=== PATIENT | female | born 1970 | race Caucasian/White ===

== ENCOUNTER → 2020-05-14 13:34 | Outpatient (BNVA) | payer MEDICAID, SELFPAY | PROVIDERS: PCP Internal Medicine; Referring Provider Internal Medicine; Visit Provider Internal Medicine | DX: E04.2 Nontoxic multinodular goiter (principal); E55.9 Vitamin D deficiency, unspecified; J98.59 Other diseases of mediastinum, not elsewhere classified | CPT/HCPCS: 99202 ==

== ENCOUNTER 2020-06-10 11:44 | Outpatient (REF) | payer MEDICAID, SELFPAY ==
[2020-06-10 13:36] LABS: Free T4 (Free Thyroxine) 1.02 ng/dL (0.71-1.85); Thyroid Stimulating Hormone 0.58 uIU/mL (0.32-4.0); Vitamin D 25-OH Total 8.5 ng/mL (>30)
[2020-06-11 19:23] LABS: Triiodothyronine T3 Total 117 ng/dL (76-181)
== END 2020-06-10 11:45 | disposition home or self-care (01) ==
LOC: HO.LAB 11:44
PROVIDERS: PCP Internal Medicine; Visit Provider Internal Medicine
DX: E04.2 Nontoxic multinodular goiter (principal); E55.9 Vitamin D deficiency, unspecified
CPT/HCPCS: 82306; 84439; 84443; 84480

== ENCOUNTER → 2020-06-11 09:08 | Outpatient (BNVA) | payer MEDICAID, SELFPAY | PROVIDERS: PCP Internal Medicine; Referring Provider Internal Medicine; Visit Provider Internal Medicine | DX: Z76.89 Persons encountering health services in other specified circumstances (principal) ==

== ENCOUNTER 2020-06-16 14:28 | Outpatient (REF) | payer MEDICAID, SELFPAY ==
--- NOTE | 2020-06-16 14:32 | US_ITS ---
EXAMINATION: US THYROID CLINICAL INFORMATION: Nontoxic multinodular goiter. COMPARISON: None TECHNIQUE: Linear transducer tesfaye-scale and color Doppler examination with attention to the region of the thyroid. FINDINGS: SIZE: Measurements of the thyroid lobes and nodules are given in sagittal, anteroposterior and transverse dimensions respectively. Right Thyroid Lobe: 6.3 x 2.5 x 2.3 cm, volume 18.8 mL. Parenchyma: The gland echotexture is heterogeneous. Thyroid vascularity is normal. Left Thyroid Lobe: 7.9 x 3.2 x 3.8 cm, volume 50.1 mL. Parenchyma: The gland echotexture is heterogeneous. Thyroid vascularity is normal. Isthmus: 0.6 cm in maximum AP dimension. RIGHT THYROID LOBE: There are 4 nodules seen. 1. Location: Upper pole. Size: 0.6 x 0.5 x 0.5 cm. Nodule characteristics: Heterogeneous, smoothly marginated with no intranodular flow. 2. Location: Mid pole. Size: 0.5 x 0.4 x 0.4 cm. Nodule characteristics: Heterogeneous, smoothly marginated with no intranodular flow. 3. Location: Mid pole. Size: 0.4 x 0.3 x 0.5 cm. Nodule characteristics: Heterogeneous, smoothly marginated with no intranodular flow. 4. Location: Lower pole. Size: 3.2 x 1.7 x 2.4 cm. Nodule characteristics: Heterogeneous, smoothly marginated with intranodular flow. ISTHMUS: No nodules. LEFT THYROID LOBE: There are 2 nodules seen. 1. Location: Mid pole. Size: 4.0 x 3.1 x 4.0 cm. Nodule characteristics: Heterogeneous, smoothly marginated with intranodular flow. 2. Location: Lower pole. Size: 5.7 x 3.3 x 2.7 cm. Nodule characteristics: Heterogeneous, smoothly marginated with intranodular flow. NODES: No lymphadenopathy is seen in the tissue surrounding the thyroid gland. US/US thyroid IMPRESSION: Multiple thyroid nodules, the largest in the mid pole and lower pole left lobe and lower pole right lobe. They are heterogeneous and suspicious. I would recommend biopsy of both these lesions.
== END 2020-06-16 14:29 | disposition home or self-care (01) ==
LOC: HO.HMGCX 14:28
PROVIDERS: PCP Internal Medicine; Visit Provider Internal Medicine
DX: E04.2 Nontoxic multinodular goiter (principal)
CPT/HCPCS: 76536

== ENCOUNTER → 2020-06-18 11:47 | Outpatient (BNVA) | payer MEDICAID, SELFPAY | PROVIDERS: PCP Internal Medicine; Referring Provider Internal Medicine; Visit Provider Internal Medicine | DX: Z76.89 Persons encountering health services in other specified circumstances (principal) ==

== ENCOUNTER 2020-06-19 12:29 | Outpatient (REF) | payer MEDICAID, SELFPAY ==
--- NOTE | 2020-06-19 12:33 | CT_ITS ---
EXAMINATION: CT SOFT TISSUE NECK WITHOUT CONTRAST CLINICAL INFORMATION: Difficulty swallowing. COMPARISON: None TECHNIQUE: Helical imaging was performed in the axial plane with generation of coronal and sagittal reformatted images. This CT examination was performed using dose optimization techniques as appropriate, variously including the following: *Automated exposure control *Adjustment of mA and/or kV according to patient size (this includes techniques or standardized protocols for targeted exams where dose is matched to indication/reason for exam; i.e. extremities or head) *Use of iterative reconstruction technique DLP: 366 mGy-cm FINDINGS: No cervical adenopathy is identified. The parotid glands are homogeneous in attenuation. The submandibular glands are normal. No contour abnormality or pathologic enhancement is seen within the oral cavity or pharyngeal mucosal space. The laryngeal structures are normal. The parapharyngeal fat is preserved. The carotid sheath vasculature opacify normally. No extra mucosal soft tissue mass or fluid collection is seen. No retropharyngeal fluid collection is seen. There is significant left thyroid enlargement with a large substernal goiter deviating the trachea to the right and posteriorly. There is mild enlargement of right thyroid gland as well. The entire left thyroid gland measures approximately 8.4 cm in craniocaudad length. The superior mediastinum is unremarkable. The lung apices are clear. The mastoid air cells and visualized portions of the paranasal sinuses are well aerated. The temporomandibular joints are normal. No periapical disease is identified. There is reversal of cervical lordosis. The vertebral heights, alignment and disc heights are preserved. The craniovertebral junction and the C1-C2 alignment is normal. The imaged portions of the brain parenchyma are unremarkable. CT/CT soft tissue neck wo con IMPRESSION: Large thyroid goiter with left-sided substernal extension deviating trachea to the right and posteriorly. There is mild compression of the trachea as well.
== END 2020-06-19 12:30 | disposition home or self-care (01) ==
LOC: HO.CT 12:29
PROVIDERS: Visit Provider Internal Medicine
DX: E55.9 Vitamin D deficiency, unspecified (principal)
CPT/HCPCS: 70490

== ENCOUNTER 2020-06-21 11:39 | Outpatient (REF) | payer MEDICAID, SELFPAY | END 2020-06-21 11:40 | disposition home or self-care (01) | LOC: HO.HOSX 11:39 | PROVIDERS: Visit Provider Orthopaedic Surgery | DX: Z13.89 Encounter for screening for other disorder (principal) ==

== ENCOUNTER 2020-06-22 13:05 | Outpatient (REF) | payer MEDICAID, SELFPAY ==
--- NOTE | 2020-06-22 13:13 | XR_ITS ---
EXAMINATION: XR SHOULDER, LEFT CLINICAL INFORMATION: Shoulder pain. COMPARISON: 12/14/2017 TECHNIQUE: AP external rotation, Grashey, scapular Y, and axillary views of the left shoulder. FINDINGS: No fracture. Glenohumeral and acromioclavicular alignment is anatomic with normal joint space. No abnormal soft tissue calcifications. XR/XR shoulder LT min 2V IMPRESSION: Unremarkable left shoulder radiograph.
== END 2020-06-22 13:06 | disposition home or self-care (01) ==
LOC: HO.HOSX 13:05
PROVIDERS: PCP Internal Medicine; Visit Provider Orthopaedic Surgery
DX: M25.519 Pain in unspecified shoulder (principal); M75.51 Bursitis of right shoulder; M89.8X1 Other specified disorders of bone, shoulder
CPT/HCPCS: 20610; 73030; 99202; J1100

== ENCOUNTER 2020-07-16 11:42 | Outpatient (REF) | payer MEDICAID, SELFPAY ==
--- NOTE | 2020-07-16 12:59 | PM.OP ---
Brief Operative Note Date of Service: 07/16/20 Surgeon: Mariola Franklin, DO This is doctor Mariola Franklin. This is an ultrasound-guided fine-needle aspiration report. Date of Examination: 1970 Indication: Multinodular Thyroid Porcedure: Procedure was explained to the patient. Alternatives, the risk and benefits were discussed. Written consent was obtained. A time-out was also obtained. After sterile preparation, fine-needle aspiration of a LLP 5.7 cm thyroid nodule was performed using direct ultrasound guidance to confirm accurate needle placement. Four aspirations were made using 27 gauge needles. Samples were submitted for cytology. One pass was dedicated for [employer] Gene sequencing coroner forensic technician testing. Our attention was then turned to a RLP 3.4 cm thyroie nodule. Fine needle aspiration of this nodule was performed using direct ultrasound guidance to confirm accurate needle placement. Four aspirations were made using 27 guage needles. Samples were submitted for cytology. One pass was dedicated for Afirma gene sequencing coroner forensic technician testing. The patient tolerated the procedure well. Aftercare instructions were provided. Impression: Uncomplicated fine needle aspiration biopsy of A LLP 5.7 cm thyroid nodule and a RLP 3.4 cm thyroid nodule under ultrasound guidance. Estimated blood loss (mL): 0
== END 2020-07-16 11:43 | disposition home or self-care (01) ==
LOC: HO.US 11:42
PROVIDERS: Visit Provider Internal Medicine
DX: E04.2 Nontoxic multinodular goiter (principal)
CPT/HCPCS: 10005; 10006; 88172; 88173; 88177

== ENCOUNTER 2020-08-06 08:00 | Outpatient (RCR) | payer MEDICAID, SELFPAY ==
--- NOTE | 2020-07-01 18:13 | MHC.PT.EP ---
[facility] [place] Office [place] Office [place] Office [address] [phone] F: [phone] F: [phone] F: [phone] F: [phone] Physical Therapy Plan of Care Date of Evaluation: 07/01/20 Date of Surgery: Diagnosis: This is a 49 yo female presenting to skilled PT for disorder of bone, shoulder. Assessment: This is a 49 yo female presenting to skilled PT for disorder of bone, shoulder. She reports that she had a frozen shoulder back in 2015 which was never addressed by due to being at the time. She did have a cortisone injection back in 2014 however and then had 2 more injections last week (minimal improvement noted). As her symptoms have continued to bother her she requested physical therapy for ROM, strengthening and pain management. At the time of eval she reports muscle tension in her neck/UT (also describes this as poking sensation as if with needles ). She also has aching/sharpness throughout B shoulders, R is worse than the L. Assessment reveals pain that ranges up to a 6/10 with functional mobility and at rest. She has gross cervical and shoulder joint decreased mobility and ROM, impaired gross muscle strength, poor posture with rounded shoulders and forward head, deficits in pain management and is tender throughout UT and has decreased functional tolerance for reaching, lifting, pulling etc. She is a good candidate for skilled PT 2x/wk for 5wks. Frequency and Duration: The patient will be seen 2x/wk for 5wks Short Term Goals: I in HEP Improved AROM shoulder by 10 degs B Improved AROM cervical ROM by at least 10 degs Correction Goals: Pain improved to at least 2/10 at the worst Demos good postural adjustments without cuing from PT Improve SPADI by 10 points at least WFL B shoulder ROM and MMT Treatment Plan: Modalities to reduce pain, spasms and effusion. Manual therapy to restore motion and function. Therapeutic exercise to improve strength and flexibility. Neuromuscular re-education for posture and balance. Therapeutic activities to return to functional activities of daily living. Electronically signed by: Yue Ferguson, PT Please sign and return to therapist. Thank you for your referral.
--- NOTE | 2021-01-04 12:04 | MHC.PT.DC ---
[facility] [place] Office [place] Office [place] Office [address] Eduardo Castro [address] [phone] F: [phone] F: [phone] F: [phone] F: [phone] Physical Therapy Discharge Report Diagnosis: This is a 49 yo female presenting to skilled PT for disorder of bone, shoulder. Date of Surgery: Date of Evaluation: 07/01/20 Date of Discharge: 01/04/21 Treatments to Date: 8 Cancellations to Date: 0 No Shows to Date: 0 Discharge Status: Improved Function Independent with HEP Patient Elected to Stop Discharge Summary: Patient reported that she continues to be stiff at the L lateral aspect of her c-spine and R UT at the last tx session. States that she has some hand numbness and elbow pain which she attributes to her elbow fx but this only occurs at night. Educated her to follow up with MD regarding this. Patient did not show for last appointment. DC to HEP at this time. Electronically signed by: Yue Ferguson PT Please sign and return to therapist. Thank you for your referral.
== END 2021-01-04 12:07 | disposition home or self-care (01) ==
LOC: HO.PTCHIC 08:00
PROVIDERS: PCP Internal Medicine; Visit Provider Orthopaedic Surgery
DX: M89.8X1 Other specified disorders of bone, shoulder (principal)
CPT/HCPCS: 97014; 97033; 97110; 97112; 97140; 97162

== ENCOUNTER → 2020-08-10 07:39 | Outpatient (BNVA) | payer MEDICAID, SELFPAY | PROVIDERS: PCP Internal Medicine; Visit Provider Internal Medicine ==

== ENCOUNTER 2020-10-15 09:39 | Outpatient (REF) | payer MEDICAID, SELFPAY ==
--- NOTE | ~2020-10-15 | US_ITS ---
EXAMINATION: US EXTRACRANIAL CAROTID DUPLEX, BILATERAL CLINICAL INFORMATION: Transient ischemic attack COMPARISON: None TECHNIQUE: Real-time ultrasound and Doppler techniques (integrating B-mode 2-D vascular images, Doppler spectral analysis and color-flow Doppler imaging) were utilized to interrogate the extracranial carotid arteries, the vertebral arteries and proximal subclavian arteries bilaterally. The degree of stenosis is determined by criteria similar to NASCET. FINDINGS: Right Side: 1. There is no significant atherosclerotic plaque seen in the bifurcation/proximal ICA region. 2. The common carotid artery PSV proximally is 126 cm/s and distally 122 cm/s. 3. The proximal internal carotid artery velocities are 80.9 cm/s systolic and 27.6 cm/s diastolic. 4. The proximal external carotid artery PSV is 135 cm/s. 5. The vertebral artery shows antegrade flow. 6. The subclavian artery waveforms are normal. Left Side: 1. There is no significant atherosclerotic plaque seen in the bifurcation/proximal ICA region. 2. The common carotid artery PSV proximally is 129 cm/s and distally 106 cm/s. 3. The proximal internal carotid artery velocities are 104 cm/s systolic and 29.1 cm/s diastolic. 4. The proximal external carotid artery PSV is 72.1 cm/s. 5. The vertebral artery shows antegrade flow. 6. The subclavian artery waveforms are normal. US/US carotid duplex BI IMPRESSION: 1. RIGHT: Normal right internal carotid artery without atherosclerotic plaque or hemodynamically significant stenosis. 2. LEFT: Normal left internal carotid artery without atherosclerotic plaque or hemodynamically significant stenosis.
--- NOTE | 2020-10-15 10:30 | EMG_ITS ---
Bilateral median and ulnar motor and sensory studies were performed. Bilateral radial sensory studies were performed and paraspinal muscles were tested with a needle. IMPRESSION: 1. Mild bilateral median neuropathy across carpal tunnel. 2. Mild bilateral ulnar neuropathy across elbow. MD ORA Jiang/WALDEMAR / [id number]
== END 2020-10-15 09:40 | disposition home or self-care (01) ==
LOC: HO.US 09:39
PROVIDERS: Visit Provider Internal Medicine
DX: G45.9 Transient cerebral ischemic attack, unspecified (principal); R20.0 Anesthesia of skin
CPT/HCPCS: 93880; 95886; 95909; 95911

== ENCOUNTER → 2020-11-09 08:10 | Outpatient (BNVA) | payer MEDICAID, SELFPAY | PROVIDERS: PCP Internal Medicine; Visit Provider Internal Medicine ==

== ENCOUNTER → 2020-12-23 08:17 | Outpatient (BNVA) | payer MEDICAID, SELFPAY | PROVIDERS: PCP Internal Medicine; Visit Provider Internal Medicine ==

== ENCOUNTER 2022-01-23 13:23 | Emergency (ER) | payer MEDICAID, SELFPAY ==
--- NOTE | ~2022-01-23 | CT_ITS ---
EXAMINATION: CT ABDOMEN AND PELVIS WITHOUT CONTRAST CLINICAL INFORMATION: Flank pain and bilateral urinary symptoms COMPARISON: None. TECHNIQUE: Multidetector volumetric imaging was performed from the lung bases through the pubic symphysis. Sagittal and coronal reformatted images were obtained on the technologist workstation. This CT examination was performed using dose optimization techniques as appropriate, variously including the following: *Automated exposure control *Adjustment of mA and/or kV according to patient size (this includes techniques or standardized protocols for targeted exams where dose is matched to indication/reason for exam; i.e. extremities or head) *Use of iterative reconstruction technique DLP 932 FINDINGS: The lack of intravenous contrast limits evaluation of the solid visceral organs including the liver, spleen, pancreas, and kidneys. LUNG BASES: The visualized lung bases are unremarkable. LIVER, GALLBLADDER, AND BILIARY TREE: Limited non-contrast evaluation is normal. No gross focal hepatic lesion. Normal liver size and contour. No gross biliary ductal dilation. The gallbladder is unremarkable with no evidence of radiopaque gallstones, gallbladder wall thickening, or obvious pericholecystic inflammatory changes. PANCREAS: Limited non-contrast evaluation is normal. No berlin-pancreatic fluid. SPLEEN: Limited non-contrast evaluation is normal. ADRENAL GLANDS: Normal; no adrenal mass. KIDNEYS AND URETERS: Limited non-contrast evaluation is normal. No hydronephrosis, hydroureter, or calculi seen. No perinephric stranding. GASTROINTESTINAL TRACT: Small bowel and colon are non-dilated. No bowel wall thickening. No pericolonic inflammatory changes to suggest colitis or diverticulitis. Normal appendix. ABDOMINAL WALL: No hernia seen. LYMPH NODES: No pathologically enlarged lymph nodes in the abdomen or pelvis. VASCULAR: Normal caliber abdominal aorta. BLADDER: Urinary bladder is collapsed with mild perivesicular fluid and slight bladder wall irregularity. PELVIC VISCERA: Normal noncontrast appearance of the uterus and ovaries. OSSEOUS STRUCTURES: No acute or suspicious osseous abnormalities. CT/CT abdomen pelvis wo con IMPRESSION: The urinary bladder is collapsed with mild perivesicular fluid and slight bladder wall irregularity. Cystitis could give this appearance. Recommend correlation with urinalysis. No calculi or hydronephrosis seen.
[2022-01-23 13:45] VITALS: BP 140/74; PULSE 80; RESP 17; O2SAT 98; BMI 41.3
[2022-01-23 15:02] LABS: Appearance Urine CLOUDY; Color Urine DK YELLOW; Glucose Urine UA NEG (NEG); Leukocyte Esterase Urine 1+ (NEG); Nitrite Urine NEG (NEG); UACC Culture Trigger YES; Urine Blood 3+ (NEG); Urine Ketones NEG (NEG); Urine Protein 2+ MG/DL (NEG-TRACE)
[2022-01-23 15:05] LABS: UPreg QC Valid YES; Urine Pregnancy NEGATIVE (NEGATIVE)
[2022-01-23 15:10] LABS: Bacteria Urine TRACE /LPF; Mucus Urine TRACE /LPF; RBC Urine TNTC /HPF (0); Squamous Epithelial Cell Urine 1+ /LPF
--- NOTE | 2022-01-23 21:32 | ED.FEMALEGU ---
HPI - Female Genitourinary General Chief complaint: Urogenital-Female Stated complaint: UTI antibiotics not working Time Seen by Provider: 01/23/22 16:37 Source: patient Mode of arrival: ambulatory Limitations: no limitations History of Present Illness HPI Narrative: 51-year-old female with past medical history significant for hyperlipidemia, HIV, hepatitis C presents today with 3 days of burning with urination, pain in her bladder, continuous feeling she needs to urinate, and peeing small amounts, sometimes this includes blood in her urine. She reports on she went to see her PCP and she was told she has a UTI based on a urine test; she received antibiotics (bactrim & pyridium), however yesterday her doctor called her and switch her antibiotic to what she believes is ciprofloxacin but she is unsure. She also reports sharp pain on both sides of her lower back starting around the same time that is worse with urination and does not radiate. She denies any fever, chills, nausea, vomiting, chest pain, shortness of breath. MD elicited complaint: dysuria and UTI Related Data Home Medications Medication Instructions Recorded Confirmed bictegravir 50 mg-emtricitabine 1 tab PO DAILY 05/14/20 12/23/20 200 mg-tenofovir alafenam 25 mg tablet (Biktarvy) naproxen 500 mg tablet 500 mg PO BID 05/14/20 12/23/20 zolpidem 10 mg tablet (Ambien) 10 mg PO BEDTIME PRN 05/14/20 12/23/20 albuterol sulfate 90 mcg/actuation 2 puff inhalation Q4-6H PRN 06/18/20 12/23/20 aerosol inhaler (ProAir HFA) aspirin 81 mg tablet,delayed 81 mg PO DAILY 08/10/20 12/23/20 release (Adult Aspirin Regimen) atorvastatin 20 mg tablet 20 mg PO DAILY 08/10/20 12/23/20 gabapentin 100 mg capsule 100 mg PO BID 08/10/20 12/23/20 Previous Rx's Medication Instructions Recorded cholecalciferol (vitamin D3) 1,250 1,250 mcg PO QWEEK 8 weeks #8 caps 06/11/20 mcg (50,000 unit) capsule cholecalciferol (vitamin D3) 50 50 mcg PO DAILY 30 days #30 caps 06/18/20 mcg (2,000 unit) capsule cefuroxime axetil 250 mg tablet 250 mg PO BID 7 days #14 tabs 01/23/22 Allergies Allergy/AdvReac Type Severity Reaction Status Date / Time No Known Allergies Allergy Verified 12/23/20 08:28 [No Known Allergies*] Review of Systems Review of Systems: Constitutional : No Weight loss, No Fever, No Chills, No Fatigue, No Malaise ENT/Mouth : No sore throat, No Rhinorrhea Eyes: No Eye Pain, No Swelling, No Redness Cardiovascular : No Chest Pain, No SOB, No Dyspnea on Exertion, No Orthopnea, No Edema, No Palpitations Respiratory : No Cough, No Sputum, No Wheezing Gastrointestinal : No Nausea, No Vomiting, No Diarrhea, No Constipation, No abdominal Pain, No Hematochezia, No Melena Genitourinary : + Dysuria, + Urinary Frequency, + Hematuria, Musculoskeletal : No joint pain, No Myalgias, No Joint Swelling Skin : No Skin Lesions, No rash Neuro : No Weakness, No Numbness, No Dizziness, No Headache Psych : No Anxiety/Panic, No Depression Heme/Lymph: No Bruising, No Bleeding,No Lymphadenopathy Endocrine : + Polyuria, No Polydipsia All other systems reviewed and are negative Yes all other systems are reviewed and are negative [facility] Past Medical History Attestation statement: The following information was validated with the patient. Source: old records reviewed and nursing notes reviewed Medical History Asthma Bursitis of right shoulder Hepatitis C HIV (human immunodeficiency virus infection) Mediastinal mass Multinodular thyroid Periscapular pain Vitamin D deficiency Surgical History Hx of section Family History Family History Father No problems noted. Mother No problems noted. 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 Oriented X3.? No acute distress.? Head: Normocephalic, atraumatic, no step-offs or deformities Eyes: Pupils equal, round and reactive to light.? ENT: Pharynx normal.? Neck: Normal inspection.? Neck supple.? CVS: Normal heart rate and rhythm.? Pulses normal.? Respiratory: No respiratory distress.? Breath sounds normal.? Abdomen: +Tenderness over the bladder, Soft Skin: Skin warm and dry.? Normal skin color.? Normal skin turgor.? Extremities: No lower extremity edema.? No calf ttp. 5/5 strength to bilateral upper and lower extremities Back: +CVA tenderness b/l, No midline tenderness, no C-spine tenderness, full range of motion Neuro: Oriented X 3.? No motor deficit.? No sensory deficit. CN 2-12 intact Course Reevaluation(s) Reevaluation #1: CBC within normal limits. Chemistry with no acute findings requiring intervention. Urine with blood and protein and leukocytes. CT of the abdomen and pelvis with a urinary bladder that is collapsed with mild perivesicular fluid in slight bladder wall irregularity. Discussed this case with my attending Dr. Grayson recommends a dose of IV antibiotics and discharging patient home on a different antibiotic. I advised patient to stop taking Cipro home and I told her we would send her new antibiotic. I offered patient IV antibiotics however she tells me she needs to leave and she does not want them. Therefore she will be discharged on new antibiotics. Advised her to return with new or worsening symptoms. Likely cystitis/UTI. Low suspicion for pyelonephritis. Time: 23:41 MDM - Female Genitourinary MDM Narrative Medical decision making narrative: 2100 51-year-old female presenting today with urinary urgency, frequency, hematuria and some abdominal discomfort progressively worsening over the last 3 days. She was seen by her PCP 3 days ago where she was diagnosed with a UTI, she has been given two antibiotics with no relief. Physical exam reveals b/l CVA tenderness, and pain with palpation over the badder Plan at this time is to do basic labs, CT of the abdomen, and Urine test Likely UTI, or cystitis will do a CT of abdomen to rule out nephrolithiasis and pyelonephritis. No signs of acute abdomen. Medical Records Attestation: I reviewed the patient's medical records. Lab Data Attestation: I reviewed the patient's lab results. Result diagrams: 01/23/22 21:49 01/23/22 21:49 Labs: Lab Results 01/23/22 01/23/22 01/23/22 Range/Units 14:52 14:52 21:49 WBC 9.1 (4.8-10.8) X10*3/uL RBC 4.13 L (4.20-5.50) X10*6/uL Hgb 12.6 (12.0-16.0) g/dl Hct 37.0 (37.0-47.0) % MCV 89.6 (80.0-98.0) fL MCH 30.5 (27.0-33.0) pg MCHC 34.1 (31.0-35.0) g/dl RDW 13.2 (11.0-16.0) % Plt Count 231 (160-400) X10*3/uL MPV 10.8 (9.4-12.3) fL Immature Gran % (Auto) 0.3 (0.0-0.4) % Neut % (Auto) 34.3 L (45-73) % Lymph % (Auto) 56.0 H (20-40) % Mccreary % (Auto) 6.6 (2-11) % Eos % (Auto) 2.4 (0-4) % Baso % (Auto) 0.4 (0-2) % Lymph # (Auto) 5.1 H (1.2-4.9) X10*3/uL Mccreary # (Auto) 0.6 (0.1-1.2) X10*3/uL Eos # (Auto) 0.2 (0.0-0.4) X10*3/uL Baso # (Auto) 0.0 (0.0-0.2) X10*3/uL Abs Immat Gran (auto) 0.03 (0.00-0.03) X10*3/uL Absolute Neuts (auto) 3.1 (2.0-8.3) x10*3/uL Absolute Nucleated RBC 0.000 (0.0-0.012) X10*3/uL Nucleated RBC % (auto) 0.0 (0.0-0.2) /100WBC Smear Tech's Comments VERIFIED Sodium (135-145) mmol/L Potassium (3.3-5.1) mmol/L Chloride (96-108) mmol/L Carbon Dioxide (22-29) mmol/L Anion Gap (12-20) BUN (9-16) mg/dL Creatinine (0.5-1.4) mg/dL Estim Creat Clear Calc Estimated GFR Random Glucose (60-115) mg/dL Calcium (8.4-10.2) mg/dL Urine Color DK YELLOW Urine Appearance CLOUDY Urine pH 7.0 (5.0-8.0) Ur Specific [place] 1.020 (1.005-1.025) Urine Protein 2+ H (NEG-TRACE) MG/DL Urine Glucose (UA) NEG (NEG) MG/DL Urine Ketones NEG (NEG) MG/DL Urine Blood 3+ H (NEG) Urine Nitrite NEG (NEG) Ur Leukocyte Esterase 1+ H (NEG) Urine RBC TNTC H (0) /HPF Urine WBC 15-29 H (0-4) /HPF Ur Squamous Epith Cells 1+ /LPF Urine Bacteria TRACE /LPF Urine Mucus TRACE /LPF Urine Test NEGATIVE (NEGATIVE) 01/23/22 Range/Units 21:49 WBC (4.8-10.8) X10*3/uL RBC (4.20-5.50) X10*6/uL Hgb (12.0-16.0) g/dl Hct (37.0-47.0) % MCV (80.0-98.0) fL MCH (27.0-33.0) pg MCHC (31.0-35.0) g/dl RDW (11.0-16.0) % Plt Count (160-400) X10*3/uL MPV (9.4-12.3) fL Immature Gran % (Auto) (0.0-0.4) % Neut % (Auto) (45-73) % Lymph % (Auto) (20-40) % Mccreary % (Auto) (2-11) % Eos % (Auto) (0-4) % Baso % (Auto) (0-2) % Lymph # (Auto) (1.2-4.9) X10*3/uL Mccreary # (Auto) (0.1-1.2) X10*3/uL Eos # (Auto) (0.0-0.4) X10*3/uL Baso # (Auto) (0.0-0.2) X10*3/uL Abs Immat Gran (auto) (0.00-0.03) X10*3/uL Absolute Neuts (auto) (2.0-8.3) x10*3/uL Absolute Nucleated RBC (0.0-0.012) X10*3/uL Nucleated RBC % (auto) (0.0-0.2) /100WBC Smear Tech's Comments Sodium 138 (135-145) mmol/L Potassium 4.0 (3.3-5.1) mmol/L Chloride 109 H (96-108) mmol/L Carbon Dioxide 22 (22-29) mmol/L Anion Gap 11 L (12-20) BUN 14 (9-16) mg/dL Creatinine 0.92 (0.5-1.4) mg/dL Estim Creat Clear Calc 87.4 Estimated GFR > 60 Random Glucose 109 (60-115) mg/dL Calcium 8.4 (8.4-10.2) mg/dL Urine Color Urine Appearance Urine pH (5.0-8.0) Ur Specific [place] (1.005-1.025) Urine Protein (NEG-TRACE) MG/DL Urine Glucose (UA) (NEG) MG/DL Urine Ketones (NEG) MG/DL Urine Blood (NEG) Urine Nitrite (NEG) Ur Leukocyte Esterase (NEG) Urine RBC (0) /HPF Urine WBC (0-4) /HPF Ur Squamous Epith Cells /LPF Urine Bacteria /LPF Urine Mucus /LPF Urine Test (NEGATIVE) Critical Care Time Critical Care Time Critical Care Time: No Discharge Plan Discharge Clinical Impression: Cystitis Patient Disposition: Home, Self-Care Instructions: Urinary Tract Infection in Women (ED), Flank Pain (ED) Additional Instructions: Take your medications as prescribed. If you were prescribed antibiotics today, it is important that you take your medication to their entirety, do not skip any doses, do not finish them early. Follow-up with your primary care provider this week. Return to the emergency department with new or worsening symptoms. Such as fevers, chills, chest pain, shortness of breath, nausea, vomiting, dizziness, headache, vision changes, lethargy In case of emergency call 911 Please stop taking ciprofloxacin. I sent Ceftin and antibiotics your pharmacy. Please take this as prescribed. Prescriptions: New cefuroxime axetil 250 mg tablet 250 mg PO BID 7 Days Qty: 14 0RF No Action Biktarvy 50-200-25 mg tablet 1 tab PO DAILY naproxen 500 mg tablet 500 mg PO BID zolpidem [Ambien] 10 mg tablet 10 mg PO BEDTIME PRN cholecalciferol (vitamin D3) 1,250 mcg (50,000 unit) capsule 1,250 mcg PO QWEEK 56 Days Qty: 8 0RF gabapentin 100 mg capsule 100 mg PO BID atorvastatin 20 mg tablet 20 mg PO DAILY aspirin [Adult Aspirin Regimen] 81 mg tablet,delayed release (DR/EC) 81 mg PO DAILY albuterol sulfate [ProAir HFA] 90 mcg/actuation HFA aerosol inhaler 2 puff inhalation Q4-6H PRN cholecalciferol (vitamin D3) 50 mcg (2,000 unit) capsule 50 mcg PO DAILY 30 Days Qty: 30 11RF Referrals: Marsha Hernandez MD [Primary Care Provider] - 2 days
[2022-01-23 21:54] LABS: Basophils Percent Auto 0.4 % (0-2); Eosinophils Absolute Auto 0.2 X10*3/uL (0.0-0.4); Eosinophils Percent Auto 2.4 % (0-4); Hemoglobin 12.6 g/dl (12.0-16.0); Imm Gran Abs Auto 0.03 X10*3/uL (0.00-0.03); Imm Gran Pct Auto 0.3 % (0.0-0.4); Lymphocytes Absolute Auto 5.1 X10*3/uL (1.2-4.9); MANUAL DIFF FLAG SCAN; Mean Corpuscular HGB Conc 34.1 g/dl (31.0-35.0); Mean Corpuscular Hemoglobin 30.5 pg (27.0-33.0); Mean Corpuscular Volume 89.6 fL (80.0-98.0); Mean Platelet Volume 10.8 fL (9.4-12.3); Monocytes Absolute Auto 0.6 X10*3/uL (0.1-1.2); Monocytes Percent Auto 6.6 % (2-11); Neutrophils Absolute Auto 3.1 x10*3/uL (2.0-8.3); Neutrophils Percent Auto 34.3 % (45-73); Platelet Count 231 X10*3/uL (160-400); Red Blood Count 4.13 X10*6/uL (4.20-5.50); Red Cell Distribution Width 13.2 % (11.0-16.0); SCAN SMEAR FLAG 1; White Blood Count 9.1 X10*3/uL (4.8-10.8)
[2022-01-23 22:01] LABS: SLIDE REVIEW VERIFIED
[2022-01-23 22:12] LABS: Anion Gap 11 (12-20); Blood Urea Nitrogen 14 mg/dL (9-16); Calcium 8.4 mg/dL (8.4-10.2); Carbon Dioxide 22 mmol/L (22-29); Chloride 109 mmol/L (96-108); Creatinine Clr Calc Pharmacy 87.4; Estimated Glomerular Filt Rate > 60; Glucose Random 109 mg/dL (60-115); Sodium 138 mmol/L (135-145)
[2022-01-23 23:19] VITALS: BP 144/79; PULSE 68; RESP 16; TEMP 36.9; O2SAT 98
== END 2022-01-24 00:02 | disposition home or self-care (01) ==
PROVIDERS: Emergency Provider Emergency Medicine; PCP Internal Medicine
DX: N39.0 Urinary tract infection, site not specified (principal); R35.0 Frequency of micturition; R30.0 Dysuria; R10.9 Unspecified abdominal pain; F17.210 Nicotine dependence, cigarettes, uncomplicated; Z79.899 Other long term (current) drug therapy; Z71.6 Tobacco abuse counseling
CPT/HCPCS: 36415; 74176; 80048; 81001; 81003; 81025; 85025; 87086; 99284

== ENCOUNTER 2022-01-25 09:59 | Emergency (ER) | payer MEDICAID, SELFPAY ==
--- NOTE | ~2022-01-25 | CT_ITS ---
EXAMINATION: CT ABDOMEN AND PELVIS WITH CONTRAST CLINICAL INFORMATION: Hematuria and pelvic pain with fluid around bladder seen on prior CT from 01/23/2022 COMPARISON: CT abdomen pelvis 01/23/2022 TECHNIQUE: Multidetector volumetric images were obtained from the superior aspect of the liver through the pubic symphysis following administration 85 mL of Omnipaque 350 intravenous contrast. Sagittal and coronal reformatted images were obtained on the technologist's workstation. Oral contrast: No This CT examination was performed using dose optimization techniques as appropriate, variously including the following: *Automated exposure control *Adjustment of mA and/or kV according to patient size (this includes techniques or standardized protocols for targeted exams where dose is matched to indication/reason for exam; i.e. extremities or head) *Use of iterative reconstruction technique DLP: 970 mGy-cm FINDINGS: LUNG BASES: The visualized lung bases are unremarkable. LIVER, GALLBLADDER, AND BILIARY TREE: The liver is normal in size, shape, and attenuation. No focal hepatic lesion or biliary ductal dilatation is present. The gallbladder is unremarkable with no evidence of radiopaque gallstones, gallbladder wall thickening, or obvious pericholecystic inflammatory changes. PANCREAS: Unremarkable. SPLEEN: Unremarkable. ADRENAL GLANDS: Unremarkable. KIDNEYS AND URETERS: The kidneys are normal in size, shape, and attenuation. No hydronephrosis, hydroureter, or calculi seen. No perinephric stranding. BLADDER: The bladder remains empty. The bladder wall appears edematous and slightly enhancing. These findings could be secondary to cystitis. Please correlate with urinalysis and culture. No pericystic fluid is seen. GASTROINTESTINAL TRACT: A tiny hiatal hernia is present. The small and large bowel are unremarkable. The appendix is unremarkable. ABDOMINAL WALL: No significant hernia is appreciated. LYMPH NODES: No retroperitoneal lymphadenopathy. VASCULAR: Unremarkable. PELVIC VISCERA: There is a normal anteverted uterus. A small left adnexal/ovarian cyst is present. An abnormal adnexal mass is not seen. OSSEOUS STRUCTURES: Unremarkable. CT/CT abdomen pelvis w con IMPRESSION: Again seen is edematous walled bladder which is nearly empty. These findings could be seen with cystitis. Please correlate with urinalysis and urine culture and sensitivity. No other significant abnormality is seen. Fleischner guidelines were followed.
--- NOTE | 2022-01-25 12:23 | ED.FEMALEGU ---
HPI - Female Genitourinary General Chief complaint: Urogenital-Female Stated complaint: UTI Time Seen by Provider: 01/25/22 12:21 Source: patient and old records reviewed Mode of arrival: ambulatory Limitations: no limitations History of Present Illness HPI Narrative: 51 yo female hx of HIV - well controlled viral load undetectable, HLD, hepatitis, - was seen here on 01/23 for 3 days of dysuria had been Rx bactrim but was called on 01/22 and antibiotic switched to cipro. In the ED she had normal labs and urine culture was negative, CT scan showed collapsed bladder with mild perivesicular fluid and slight bladder wall irregularity - she was sent home on ceftin. Patient refused IV antibiotics in the ED. Patient is back with persistent dysuria and now hematuria since yesterday. MD elicited complaint: dysuria, UTI , pelvic pain and other (hematuria) Onset (ago): day(s) (5) Location of symptoms: suprapubic Severity: moderate Quality of pain: burning and aching Consistency: intermittent Urinary symptoms: Dysuria, Urgency, Frequency, Hematuria and Difficulty Urinating Exacerbating factors: urination Relieving factors: none Associated symptoms: abdominal pain, nausea and other (chills) Treatment prior to arrival: other (bactrim, cipro, ceftin has been taking it ) Related Data Home Medications Medication Instructions Recorded Confirmed bictegravir 50 mg-emtricitabine 1 tab PO DAILY 05/14/20 12/23/20 200 mg-tenofovir alafenam 25 mg tablet (Biktarvy) naproxen 500 mg tablet 500 mg PO BID 05/14/20 12/23/20 zolpidem 10 mg tablet (Ambien) 10 mg PO BEDTIME PRN 05/14/20 12/23/20 albuterol sulfate 90 mcg/actuation 2 puff inhalation Q4-6H PRN 06/18/20 12/23/20 aerosol inhaler (ProAir HFA) aspirin 81 mg tablet,delayed 81 mg PO DAILY 08/10/20 12/23/20 release (Adult Aspirin Regimen) atorvastatin 20 mg tablet 20 mg PO DAILY 08/10/20 12/23/20 gabapentin 100 mg capsule 100 mg PO BID 08/10/20 12/23/20 Previous Rx's Medication Instructions Recorded cholecalciferol (vitamin D3) 1,250 1,250 mcg PO QWEEK 8 weeks #8 caps 06/11/20 mcg (50,000 unit) capsule cholecalciferol (vitamin D3) 50 50 mcg PO DAILY 30 days #30 caps 06/18/20 mcg (2,000 unit) capsule cefuroxime axetil 250 mg tablet 250 mg PO BID 7 days #14 tabs 01/23/22 Allergies Allergy/AdvReac Type Severity Reaction Status Date / Time No Known Allergies Allergy Verified 12/23/20 08:28 [No Known Allergies*] Review of Systems Review of Systems: Constitutional : No Weight loss, No Fever, pos Chills ENT/Mouth : No sore throat, No Rhinorrhea Eyes: No Swelling, No Redness Cardiovascular : No Chest Pain, No SOB, No Edema Respiratory : No Cough, No Sputum, No Wheezing Gastrointestinal : no Nausea, no Vomiting, no Diarrhea, positive abdominal Pain, No Hematochezia, No Melena Genitourinary : pos Dysuria, pos Urinary Frequency, pos Hematuria, pos Urgency Musculoskeletal : No joint pain, No Myalgias, No Joint Swelling Skin : No Skin Lesions, No rash Neuro : No Weakness, No Numbness, No Dizziness, No Headache Psych : No Anxiety/Panic, No Depression Heme/Lymph: No Bruising, No Lymphadenopathy Endocrine : No Polyuria, No Polydipsia All other systems reviewed and are negative. [facility] Past Medical History Attestation statement: The following information was validated with the patient. Medical History Asthma Bursitis of right shoulder Hepatitis C HIV (human immunodeficiency virus infection) Mediastinal mass Multinodular thyroid Periscapular pain Vitamin D deficiency Surgical History Hx of section Family History Family History Father No problems noted. Mother No problems noted. 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 Oriented X3. No acute distress. Eyes: Pupils equal, round and reactive to light. ENT: Pharynx normal. Neck: Normal inspection. Neck supple. CVS: Normal heart rate and rhythm. Pulses normal. Respiratory: No respiratory distress. Breath sounds normal. Abdomen: Soft and mild suprapubic ttp no rebound or guarding Skin: Skin warm and dry. Normal skin color. Normal skin turgor. Extremities: No lower extremity edema. No calf ttp Neuro: Oriented X 3. No motor deficit. No sensory deficit. Course Course Course Narrative: labs, cultures, IV antibiotics delayed due to difficult stick 345pm. spoke to PCP - no culture results yet. given no response to antibiotics and worsening symptoms will put on treatment for ESBL until culture returned now patient has gross hematuria signed out to Dr. Campbell MDM - Female Genitourinary MDM Narrative Medical decision making narrative: 51 yo female hx of HIV - well controlled viral load undetectable, HLD, hepatitis here with persistent pelvic pain, dysuria, chills now with hematuria at this time will need labs, cultures, UA - requesting culture report from [facility]. repeat CT scan but with contrast this time. Dispo per results and findings. Lab Data Labs: Lab Results 01/25/22 01/25/22 Range/Units 13:27 13:27 Urine Color YELLOW Urine Appearance CLOUDY Urine pH 7.0 (5.0-8.0) Ur Specific Thayer 1.020 (1.005-1.025) Urine Protein 2+ H (NEG-TRACE) MG/DL Urine Glucose (UA) NEG (NEG) MG/DL Urine Ketones NEG (NEG) MG/DL Urine Blood 3+ H (NEG) Urine Nitrite NEG (NEG) Ur Leukocyte Esterase 1+ H (NEG) Urine RBC 76-150 H (0) /HPF Urine WBC 10-14 H (0-4) /HPF Ur Squamous Epith Cells TRACE /LPF Urine Bacteria NONE /LPF COVID-19 ([facility]) Negative (Negative) COVID-19 Clin Com See Note Discharge Plan Discharge Clinical Impression: Cystitis Hematuria Qualifiers: Hematuria type: gross Qualified Code(s): R31.0 - Gross hematuria Patient Disposition: Still a Patient Prescriptions: No Action cefuroxime axetil 250 mg tablet 250 mg PO BID 7 Days Qty: 14 0RF Biktarvy 50-200-25 mg tablet 1 tab PO DAILY naproxen 500 mg tablet 500 mg PO BID zolpidem [Ambien] 10 mg tablet 10 mg PO BEDTIME PRN cholecalciferol (vitamin D3) 1,250 mcg (50,000 unit) capsule 1,250 mcg PO QWEEK 56 Days Qty: 8 0RF gabapentin 100 mg capsule 100 mg PO BID atorvastatin 20 mg tablet 20 mg PO DAILY aspirin [Adult Aspirin Regimen] 81 mg tablet,delayed release (DR/EC) 81 mg PO DAILY albuterol sulfate [ProAir HFA] 90 mcg/actuation HFA aerosol inhaler 2 puff inhalation Q4-6H PRN cholecalciferol (vitamin D3) 50 mcg (2,000 unit) capsule 50 mcg PO DAILY 30 Days Qty: 30 11RF
[2022-01-25 12:33] VITALS: BMI 41.1
[2022-01-25 12:36] VITALS: BP 131/77; PULSE 85; RESP 16; TEMP 36.2; O2SAT 97; BMI 41.3
[2022-01-25 13:40] LABS: Appearance Urine CLOUDY; Color Urine YELLOW; Glucose Urine UA NEG (NEG); Leukocyte Esterase Urine 1+ (NEG); Nitrite Urine NEG (NEG); UACC Culture Trigger YES; Urine Blood 3+ (NEG); Urine Ketones NEG (NEG); Urine Protein 2+ MG/DL (NEG-TRACE)
[2022-01-25 13:49] LABS: COVID-19 Test Negative (Negative)
[2022-01-25 14:00] LABS: Squamous Epithelial Cell Urine TRACE /LPF
--- NOTE | 2022-01-25 16:18 | PC.NURSE ---
THIS RN ATTEMPTED TO DRAW BLOOD CULTURES WITH NO SUCCESS. PCT TRIED TODRAW PATIENT WELL WITH NO SUCCESS. PHLEBOTOMY CALLED AND NO ONE IS AVAILABLE TO DRAW PT AT THIS TIME.
[2022-01-25] MEDS: Ertapenem Sodium 1 GM in 0.9 % Sodium Chloride 50 ML IV (17:09)
[2022-01-25 17:12] LABS: Basophils Percent Auto 0.4 % (0-2); Eosinophils Absolute Auto 0.2 X10*3/uL (0.0-0.4); Eosinophils Percent Auto 2.1 % (0-4); Hematocrit 37.6 % (37.0-47.0); Hemoglobin 12.6 g/dl (12.0-16.0); Imm Gran Abs Auto 0.03 X10*3/uL (0.00-0.03); Imm Gran Pct Auto 0.3 % (0.0-0.4); Lactic Acid 0.5 mmol/L (0.5-2.0); Lymphocytes Percent Auto 55.8 % (20-40); MANUAL DIFF FLAG SCAN; Mean Corpuscular HGB Conc 33.5 g/dl (31.0-35.0); Mean Corpuscular Hemoglobin 30.4 pg (27.0-33.0); Mean Corpuscular Volume 90.6 fL (80.0-98.0); Mean Platelet Volume 11.3 fL (9.4-12.3); Monocytes Absolute Auto 0.8 X10*3/uL (0.1-1.2); Neutrophils Absolute Auto 3.7 x10*3/uL (2.0-8.3); Neutrophils Percent Auto 34.4 % (45-73); Platelet Count 235 X10*3/uL (160-400); Red Blood Count 4.15 X10*6/uL (4.20-5.50); Red Cell Distribution Width 13.2 % (11.0-16.0); SCAN SMEAR FLAG 1; White Blood Count 10.7 X10*3/uL (4.8-10.8)
[2022-01-25 17:19] LABS: INTERNATIONAL NORM RATIO 0.9 (0.9-1.1); Prothrombin Time 10.2 SEC (10.0-13.1)
[2022-01-25 17:23] LABS: SLIDE REVIEW VERIFIED
[2022-01-25 17:25] LABS: Alanine Aminotransferase 15 U/L (0-31); Albumin Level 3.8 g/dL (3.5-5.0); Alkaline Phosphatase 56 U/L (39-117); Anion Gap 9 (12-20); Aspartate Amino Transferase 21 U/L (5-31); Bilirubin Direct < 0.2 mg/dL (0.0-0.5); Bilirubin Total 0.2 mg/dL (0.0-1.0); Blood Urea Nitrogen 13 mg/dL (9-16); Calcium 8.6 mg/dL (8.4-10.2); Carbon Dioxide 25 mmol/L (22-29); Chloride 108 mmol/L (96-108); Creatinine Clr Calc Pharmacy 100.5; Estimated Glomerular Filt Rate > 60; Glucose Random 84 mg/dL (60-115); Magnesium 1.8 mg/dL (1.6-2.6); Potassium 4.3 mmol/L (3.3-5.1); Sodium 138 mmol/L (135-145)
[2022-01-25] MEDS: iohexoL 350 MG/ML 100 ML INFUS..BTL IV (18:16)
[2022-01-25] MEDS: Phenazopyridine HCL 200 MG TABLET PO (20:20)
== END 2022-01-25 20:27 | disposition home or self-care (01) ==
PROVIDERS: Emergency Medicine; Emergency Provider Internal Medicine; PCP Internal Medicine
DX: N30.91 Cystitis, unspecified with hematuria (principal); R31.0 Gross hematuria; Z20.822 Contact with and (suspected) exposure to COVID-19; B20 Human immunodeficiency virus [HIV] disease; B19.20 Unspecified viral hepatitis C without hepatic coma; E78.5 Hyperlipidemia, unspecified; Z79.82 Long term (current) use of aspirin; Z79.02 Long term (current) use of antithrombotics/antiplatelets; Z79.899 Other long term (current) drug therapy; F17.210 Nicotine dependence, cigarettes, uncomplicated
CPT/HCPCS: 36415; 74177; 80048; 80076; 81001; 83605; 83735; 85025; 85610; 87040; 87086; 87635; 96365; 99284; J1335; Q9967

== ENCOUNTER → 2022-02-07 08:29 | Outpatient (BNVA) | payer MEDICAID, SELFPAY | PROVIDERS: PCP Internal Medicine | DX: N30.01 Acute cystitis with hematuria (principal); F17.210 Nicotine dependence, cigarettes, uncomplicated | CPT/HCPCS: 99202 ==

== ENCOUNTER 2022-09-07 10:00 | Outpatient (RCR) | payer MEDICAID, SELFPAY ==
[2022-08-23 10:12] VITALS: BP 140/80; PULSE 88
== END 2022-09-30 15:09 | disposition home or self-care (01) ==
LOC: HO.PT 10:00
PROVIDERS: PCP Internal Medicine; Visit Provider Emergency Medicine
DX: H81.10 Benign paroxysmal vertigo, unspecified ear (principal)
CPT/HCPCS: 95992; 97162

== ENCOUNTER 2022-11-24 10:58 | Outpatient (REF) | payer MEDICAID, SELFPAY ==
--- NOTE | ~2022-11-24 | XR_ITS ---
EXAMINATION: XR CHEST CLINICAL INFORMATION: Rhonchi on physical exam with chest pain COMPARISON: Chest radiograph 02/11/2020, CT chest 02/20/2020 TECHNIQUE: 2 views of the chest were obtained. FINDINGS: No significant abnormality is noted involving the heart, lungs, mediastinum, bony thorax or soft tissues aside from a tiny bit of atelectasis at the left lung base. The widened superior mediastinum seen previously shown to be related to substernal thyroid is not apparent on the current study. XR/XR chest 2V IMPRESSION: No acute intrathoracic disease.
== END 2022-11-24 10:59 | disposition home or self-care (01) ==
LOC: HO.HHCX 10:58
PROVIDERS: Visit Provider Family Medicine
DX: J45.41 Moderate persistent asthma with (acute) exacerbation (principal)
CPT/HCPCS: 71046

== ENCOUNTER 2023-05-22 13:31 | Outpatient (REF) | payer MEDICAID, SELFPAY ==
--- NOTE | ~2023-05-22 | MR_ITS ---
MRI OF THE BRAIN WITHOUT IV CONTRAST INDICATION: Chronic migraines left side behind ear COMPARISON: None available. TECHNIQUE: Multiplanar multisequence MR imaging of the brain was obtained without IV contrast. FINDINGS: No acute intracranial hemorrhage or infarct. Few scattered and confluent periventricular white matter T2/FLAIR hyperintensities. No midline shift or hydrocephalus. No acute extra-axial fluid collections. The osseous structures are unremarkable. The pituitary gland, pineal gland and remaining midline structures are unremarkable. No orbital pathology. Mucosal thickening of the paranasal sinuses with polyposis versus mucus retention cyst in the left maxillary sinus. The mastoid air cells are clear. MR/MR head/brain wo con IMPRESSION: -No acute intracranial findings. -Few scattered and confluent periventricular white matter T2/FLAIR hyperintensities are nonspecific but can be seen in the setting of chronic migraines versus chronic microangiopathy.
== END 2023-05-22 13:32 | disposition home or self-care (01) ==
LOC: HO.MRI 13:31
PROVIDERS: PCP Internal Medicine; Visit Provider Psychiatry & Neurology Neurology
DX: R51.9 Headache, unspecified (principal)
CPT/HCPCS: 70551

== ENCOUNTER 2023-06-19 13:24 | Outpatient (REF) | payer MEDICAID, SELFPAY ==
[2023-06-19 14:11] LABS: MANUAL DIFF FLAG NO
[2023-06-19 14:17] LABS: Basophils Percent Auto 0.6 % (0-2); Eosinophils Absolute Auto 0.1 X10*3/uL (0.0-0.4); Eosinophils Percent Auto 1.6 % (0-4); Imm Gran Abs Auto 0.02 X10*3/uL (0.00-0.03); Imm Gran Pct Auto 0.3 % (0.0-0.4); Lymphocytes Absolute Auto 3.6 X10*3/uL (1.2-4.9); Lymphocytes Percent Auto 50.9 % (20-40); Mean Corpuscular HGB Conc 33.3 g/dl (31.0-35.0); Mean Corpuscular Hemoglobin 31.2 pg (27.0-33.0); Mean Corpuscular Volume 93.5 fL (80.0-98.0); Mean Platelet Volume 11.4 fL (9.4-12.3); Monocytes Absolute Auto 0.4 X10*3/uL (0.1-1.2); Monocytes Percent Auto 5.7 % (2-11); Neutrophils Absolute Auto 2.9 x10*3/uL (2.0-8.3); Neutrophils Percent Auto 40.9 % (45-73); Platelet Count 278 X10*3/uL (160-400); Red Blood Count 4.17 X10*6/uL (4.20-5.50); Red Cell Distribution Width 13.6 % (11.0-16.0)
[2023-06-19 15:04] LABS: Alanine Aminotransferase 23 U/L (0-31); Albumin Level 3.7 g/dL (3.5-5.0); Alkaline Phosphatase 63 U/L (39-117); Anion Gap 8 (12-20); Aspartate Amino Transferase 26 U/L (5-31); Bilirubin Total 0.2 mg/dL (0.0-1.0); Blood Urea Nitrogen 15 mg/dL (9-16); Calcium 9.2 mg/dL (8.4-10.2); Carbon Dioxide 26 mmol/L (22-29); Chloride 111 mmol/L (96-108); Estimated Glomerular Filt Rate > 60; Glucose Random 127 mg/dL (60-115); Potassium 3.6 mmol/L (3.3-5.1); Sodium 141 mmol/L (135-145); Total Protein 7.5 g/dL (6.5-8.0)
[2023-06-19 15:13] LABS: Cholesterol 193 mg/dL (<200); HDL Cholesterol 43 mg/dL (>40); LDL Cholesterol Calculated 106 mg/dL (<100); Triglycerides 221 mg/dL (<150)
[2023-06-19 15:43] LABS: Reflex LDLD? No
[2023-06-19 16:56] LABS: CT PCR NOT DETECTED (Not Detect.); NG PCR NOT DETECTED (Not Detect.)
[2023-06-20 08:22] LABS: ~HepC Num1 14.18 S/CO (0.00-0.79); ~Hepatitis C Antibody Reactive (Nonreactive)
[2023-06-20 12:39] LABS: Absolute CD3 Count 2448 cells/uL (840-3060); Absolute CD4 Count 1144 cells/uL (490-1740); Absolute CD8 Count 1321 cells/uL (180-1170); Absolute Lymphocytes 3743 cells/uL (850-3900); CD4 CD8 Ratio 0.87 (0.86-5.00); Percent CD3 Cells 65 % (57-85); Percent CD4 Cells 31 % (30-61); Percent CD8 Cells 35 % (12-42)
[2023-06-20 14:19] LABS: HIV RNA PCR Qn Copies <20 DETECTED copies/mL (NOT DETECTED); HIV RNA PCR Qn Log Copies <1.30 DETECTED (NOT DETECTED)
[2023-06-21 17:28] LABS: RPR Rapid Plasma Reagin NON-REACTIVE (NON-REACTIVE)
[2023-06-21 20:18] LABS: HCV Log PCR <1.18 NOT DETECTED Log IU/mL (NOT DETECTED); HepC Viral Load <15 NOT DETECTED IU/mL (NOT DETECTED)
[2023-06-22 07:54] LABS: TS Negative Control Passed; TS Panel A 0; TS Panel B 1; TS Positive Control Passed; TSpotTB Negative (Negative)
== END 2023-06-19 13:25 | disposition home or self-care (01) ==
LOC: HO.CHCLDS 13:24
PROVIDERS: Visit Provider Student in an Organized Health Care Education/Training Program
DX: B20 Human immunodeficiency virus [HIV] disease (principal)
CPT/HCPCS: 0353U; 36415; 80053; 80061; 85025; 86359; 86360; 86481; 86592; 86803; 87522; 87536

== ENCOUNTER 2023-06-20 15:34 | Outpatient (REF) | payer MEDICAID, SELFPAY ==
[2023-06-20 16:49] LABS: Appearance Urine Turbid; Color Urine Yellow; Glucose Urine UA Negative (Negative); Leukocyte Esterase Urine Negative (Negative); Nitrite Urine Negative (Negative); PH 7.5 (5.0-9.0); Urine Blood Negative (Negative); Urine Ketones Negative (Negative); Urine Protein Negative (Neg-Trace)
[2023-06-20 16:54] LABS: Bacteria Urine Trace (None Seen); Hyaline Casts Urine 0-2 /LPF (0-2); RBC Urine 0-2 /HPF (0-2); WBC Urine 0-5 /HPF (0-5)
== END 2023-06-20 15:35 | disposition home or self-care (01) ==
LOC: HO.HHCL 15:34
PROVIDERS: Visit Provider Student in an Organized Health Care Education/Training Program
DX: B20 Human immunodeficiency virus [HIV] disease (principal)
CPT/HCPCS: 81001

== ENCOUNTER 2023-08-24 10:16 | Outpatient (REF) | payer OTHER, SELFPAY ==
[2023-08-24 11:54] LABS: Estimated Average Glucose 171 mg/dL; Hemoglobin A1c % 7.6 % (<6.0)
[2023-08-24 13:55] LABS: TSH reflex Free T4 1.22 uIU/mL (0.32-4.0)
== END 2023-08-24 10:17 | disposition home or self-care (01) ==
LOC: HO.HHCL 10:16
PROVIDERS: Visit Provider Internal Medicine
DX: E03.9 Hypothyroidism, unspecified (principal)
CPT/HCPCS: 36415; 83036; 84443

== ENCOUNTER 2023-12-06 15:22 | Outpatient (REF) | payer OTHER, SELFPAY ==
[2023-12-06 16:48] LABS: MANUAL DIFF FLAG NO
[2023-12-06 16:52] LABS: Basophils Percent Auto 0.5 % (0-2); Eosinophils Absolute Auto 0.2 X10*3/uL (0.0-0.4); Eosinophils Percent Auto 2.1 % (0-4); Hemoglobin 14.1 g/dl (12.0-16.0); Imm Gran Abs Auto 0.02 X10*3/uL (0.00-0.03); Imm Gran Pct Auto 0.2 % (0.0-0.4); Lymphocytes Absolute Auto 3.8 X10*3/uL (1.2-4.9); Lymphocytes Percent Auto 43.8 % (20-40); Mean Corpuscular HGB Conc 35.3 g/dl (31.0-35.0); Mean Corpuscular Hemoglobin 31.7 pg (27.0-33.0); Mean Corpuscular Volume 89.9 fL (80.0-98.0); Mean Platelet Volume 11.6 fL (9.4-12.3); Monocytes Absolute Auto 0.6 X10*3/uL (0.1-1.2); Monocytes Percent Auto 7.2 % (2-11); Neutrophils Percent Auto 46.2 % (45-73); Platelet Count 276 X10*3/uL (160-400); Red Blood Count 4.45 X10*6/uL (4.20-5.50); Red Cell Distribution Width 13.2 % (11.0-16.0); White Blood Count 8.6 X10*3/uL (4.8-10.8)
[2023-12-06 17:26] LABS: Alanine Aminotransferase 26 U/L (0-31); Albumin Level 4.1 g/dL (3.5-5.0); Alkaline Phosphatase 56 U/L (39-117); Anion Gap 11 (12-20); Aspartate Amino Transferase 35 U/L (5-31); Bilirubin Total 0.2 mg/dL (0.0-1.0); Blood Urea Nitrogen 15 mg/dL (9-16); Calcium 9.3 mg/dL (8.4-10.2); Carbon Dioxide 28 mmol/L (22-29); Chloride 105 mmol/L (96-108); Estimated Glomerular Filt Rate 58; Glucose Random 140 mg/dL (60-115); Sodium 141 mmol/L (135-145); Total Protein 8.3 g/dL (6.5-8.0)
[2023-12-06 17:51] LABS: Potassium 2.7 mmol/L (3.3-5.1)
[2023-12-08 08:28] LABS: Absolute CD3 Count 2489 cells/uL (840-3060); Absolute CD4 Count 1112 cells/uL (490-1740); Absolute CD8 Count 1399 cells/uL (180-1170); Absolute Lymphocytes 4031 cells/uL (850-3900); CD4 CD8 Ratio 0.79 (0.86-5.00); Percent CD3 Cells 62 % (57-85); Percent CD4 Cells 28 % (30-61); Percent CD8 Cells 35 % (12-42)
[2023-12-11 13:59] LABS: HIV RNA PCR Qn Copies <20 DETECTED copies/mL (NOT DETECTED); HIV RNA PCR Qn Log Copies <1.30 DETECTED (NOT DETECTED)
== END 2023-12-06 15:23 | disposition home or self-care (01) ==
LOC: HO.HHCL 15:22
PROVIDERS: PCP Emergency Medicine; Referring Provider Internal Medicine; Visit Provider Internal Medicine
DX: B20 Human immunodeficiency virus [HIV] disease (principal); R30.0 Dysuria; R60.0 Localized edema
CPT/HCPCS: 36415; 80053; 85025; 86359; 86360; 87086; 87536

== ENCOUNTER 2023-12-28 09:34 | Outpatient (REF) | payer OTHER, SELFPAY ==
[2023-12-28 12:24] LABS: Anion Gap 10 (12-20); Blood Urea Nitrogen 13 mg/dL (9-16); Calcium 9.1 mg/dL (8.4-10.2); Carbon Dioxide 29 mmol/L (22-29); Chloride 108 mmol/L (96-108); Estimated Glomerular Filt Rate > 60; Glucose Random 87 mg/dL (60-115); Potassium 4.5 mmol/L (3.3-5.1); Sodium 142 mmol/L (135-145)
== END 2023-12-28 09:35 | disposition home or self-care (01) ==
LOC: HO.HHCL 09:34
PROVIDERS: Visit Provider Internal Medicine
DX: E87.6 Hypokalemia (principal); J40 Bronchitis, not specified as acute or chronic
CPT/HCPCS: 36415; 80048

== ENCOUNTER 2024-05-22 08:16 | Outpatient (REF) | payer MEDICAID, SELFPAY ==
[2024-05-22 10:56] LABS: MANUAL DIFF FLAG NO
[2024-05-22 11:03] LABS: Basophils Percent Auto 0.4 % (0-2); Eosinophils Absolute Auto 0.2 X10*3/uL (0.0-0.4); Eosinophils Percent Auto 1.9 % (0-4); Hematocrit 39.6 % (37.0-47.0); Hemoglobin 13.1 g/dl (12.0-16.0); Imm Gran Abs Auto 0.02 X10*3/uL (0.00-0.03); Imm Gran Pct Auto 0.2 % (0.0-0.4); Lymphocytes Percent Auto 37.4 % (20-40); Mean Corpuscular HGB Conc 33.1 g/dl (31.0-35.0); Mean Corpuscular Volume 93.6 fL (80.0-98.0); Mean Platelet Volume 11.8 fL (9.4-12.3); Monocytes Absolute Auto 0.8 X10*3/uL (0.1-1.2); Monocytes Percent Auto 7.4 % (2-11); Neutrophils Absolute Auto 5.6 x10*3/uL (2.0-8.3); Neutrophils Percent Auto 52.7 % (45-73); Platelet Count 240 X10*3/uL (160-400); Red Blood Count 4.23 X10*6/uL (4.20-5.50); Red Cell Distribution Width 13.8 % (11.0-16.0); White Blood Count 10.6 X10*3/uL (4.8-10.8)
[2024-05-22 11:06] LABS: Appearance Urine Turbid; Color Urine Dark Yellow; Glucose Urine UA Negative (Negative); Leukocyte Esterase Urine Negative (Negative); Nitrite Urine Negative (Negative); Specific Gravity - Urine >= 1.030 (1.005-1.025); UMIC TRIGGER UACC YES; Urine Blood Negative (Negative); Urine Ketones Trace mg/dL (Negative); Urine Protein 30 (1+) mg/dL (Neg-Trace)
[2024-05-22 11:14] LABS: Bacteria Urine 1+ (None Seen); WBC Urine 0-5 /HPF (0-5)
[2024-05-22 11:34] LABS: Hepatitis A Antibody IgG REACTIVE (Nonreactive); ~Hepatitis A Antibody IgG 4.47 S/CO (0.00-0.99)
[2024-05-22 11:35] LABS: Syphilis Screen Nonreactive (Nonreactive)
[2024-05-22 11:38] LABS: Alanine Aminotransferase 17 U/L (0-31); Alkaline Phosphatase 61 U/L (39-117); Anion Gap 10 (12-20); Aspartate Amino Transferase 27 U/L (5-31); Bilirubin Total 0.3 mg/dL (0.0-1.0); Blood Urea Nitrogen 12 mg/dL (9-16); Calcium 9.2 mg/dL (8.4-10.2); Carbon Dioxide 28 mmol/L (22-29); Chloride 105 mmol/L (96-108); Cholesterol 197 mg/dL (<200); Estimated Glomerular Filt Rate > 60; Glucose Random 91 mg/dL (60-115); HDL Cholesterol 49 mg/dL (>40); LDL Cholesterol Calculated 131 mg/dL (<100); Potassium 4.1 mmol/L (3.3-5.1); Sodium 139 mmol/L (135-145); Total Protein 7.6 g/dL (6.5-8.0); Triglycerides 89 mg/dL (<150)
[2024-05-22 12:09] LABS: HBS Num1 105.59 mIU/mL (0-7.99); ~Hepatitis B Surface Antibody REACTIVE (Nonreactive)
[2024-05-22 12:13] LABS: HBc Num1 0.11 S/CO (0.00-0.79); HBsAGNum1 0.29 S/CO (0.00-0.99); Hepatitis B Core Antibody Nonreactive (Nonreactive); Hepatitis B Surface Antigen Negative (Negative)
[2024-05-22 12:54] LABS: Reflex LDLD? No
[2024-05-24 08:58] LABS: HIV RNA PCR Qn Copies 53 copies/mL (NOT DETECTED); HIV RNA PCR Qn Log Copies 1.72 (NOT DETECTED)
[2024-05-24 15:10] LABS: HCV Log PCR <1.18 NOT DETECTED Log IU/mL (NOT DETECTED); HepC Viral Load <15 NOT DETECTED IU/mL (NOT DETECTED)
[2024-05-25 05:09] LABS: TS Negative Control Passed; TS Panel A 0; TS Panel B 3; TS Positive Control Passed; TSpotTB Negative (Negative)
[2024-05-27 22:44] LABS: Absolute CD3 Count 2018 cells/uL (840-3060); Absolute CD4 Count 868 cells/uL (490-1740); Absolute CD8 Count 1178 cells/uL (180-1170); Absolute Lymphocytes 3734 cells/uL (850-3900); CD4 CD8 Ratio 0.74 (0.86-5.00); Percent CD3 Cells 54 % (57-85); Percent CD4 Cells 23 % (30-61); Percent CD8 Cells 32 % (12-42)
== END 2024-05-22 08:17 | disposition home or self-care (01) ==
LOC: HO.HHCL 08:16
PROVIDERS: Visit Provider Internal Medicine
DX: Z21 Asymptomatic human immunodeficiency virus [HIV] infection status (principal)
CPT/HCPCS: 36415; 80053; 80061; 81001; 85025; 86359; 86360; 86481; 86704; 86706; 86708; 86780; 87340; 87522; 87536

== ENCOUNTER 2024-06-13 16:04 | Outpatient (REF) | payer MEDICAID, SELFPAY ==
--- NOTE | ~2024-06-13 | XR_ITS ---
EXAMINATION: XR CHEST CLINICAL INFORMATION: persistent cough COMPARISON: CXR on 11/24/22 TECHNIQUE: 2 views of the chest were obtained. FINDINGS: No significant abnormality is noted involving the heart, lungs, mediastinum, bony thorax or soft tissues. XR/XR chest 2V IMPRESSION: Unremarkable examination. Electronically signed by: María Wade MD 06/14/2024 10:24 AM [facility]
== END 2024-06-13 16:05 | disposition home or self-care (01) ==
LOC: HO.HHCX 16:04
PROVIDERS: Visit Provider Nurse Practitioner
DX: R05.1 Acute cough (principal)
CPT/HCPCS: 71046

== ENCOUNTER 2024-08-28 12:29 | Outpatient (REF) | payer MEDICAID, SELFPAY | END 2024-08-28 12:30 | disposition home or self-care (01) | LOC: HO.SH 12:29 | PROVIDERS: Visit Provider Internal Medicine | DX: Z01.118 Encounter for examination of ears and hearing with other abnormal findings (principal); H90.71 Mixed conductive and sensorineural hearing loss, unilateral, right ear, with unrestricted hearing on the contralateral side | CPT/HCPCS: 92557; 92567 ==

== ENCOUNTER 2024-10-14 09:42 | Outpatient (REF) | payer MEDICAID, SELFPAY ==
[2024-10-14 11:36] LABS: Estimated Average Glucose 126 mg/dL; Hemoglobin A1C 152.0909 umol/L
[2024-10-14 11:43] LABS: Creatinine Urine 75.93 mg/dL; Microalbum/Creatinine Ratio Ur 11.8 ug/mg cr (<30)
[2024-10-14 13:23] LABS: TSH reflex Free T4 1.86 uIU/mL (0.32-4.0)
[2024-10-14 13:27] LABS: Anion Gap 10 (12-20)
[2024-10-14 13:32] LABS: Alanine Aminotransferase 21 U/L (0-31); Albumin Level 4.1 g/dL (3.5-5.0); Alkaline Phosphatase 77 U/L (39-117); Aspartate Amino Transferase 34 U/L (5-31); Bilirubin Total 0.4 mg/dL (0.0-1.0); Blood Urea Nitrogen 14 mg/dL (9-16); Calcium 9.1 mg/dL (8.4-10.2); Carbon Dioxide 27 mmol/L (22-29); Chloride 108 mmol/L (96-108); Cholesterol 146 mg/dL (<200); Estimated Glomerular Filt Rate > 60; Glucose Random 95 mg/dL (60-115); HDL Cholesterol 54 mg/dL (>40); LDL Cholesterol Calculated 76 mg/dL (<100); Potassium 4.4 mmol/L (3.3-5.1); Sodium 141 mmol/L (135-145); Total Protein 7.5 g/dL (6.5-8.0); Triglycerides 83 mg/dL (<150)
== END 2024-10-14 09:43 | disposition home or self-care (01) ==
LOC: HO.HHCL 09:42
PROVIDERS: Visit Provider Internal Medicine
DX: E11.9 Type 2 diabetes mellitus without complications (principal); E03.9 Hypothyroidism, unspecified
CPT/HCPCS: 36415; 80053; 80061; 82043; 82570; 83036; 84443

== ENCOUNTER 2024-12-24 14:38 | Outpatient (REF) | payer MEDICAID, SELFPAY ==
[2024-12-24 16:12] LABS: MANUAL DIFF FLAG NO
[2024-12-24 16:25] LABS: Basophils Percent Auto 0.5 % (0-2); Eosinophils Absolute Auto 0.2 X10*3/uL (0.0-0.4); Hematocrit 42.4 % (37.0-47.0); Imm Gran Abs Auto 0.01 X10*3/uL (0.00-0.03); Imm Gran Pct Auto 0.1 % (0.0-0.4); Lymphocytes Absolute Auto 4.4 X10*3/uL (1.2-4.9); Lymphocytes Percent Auto 54.2 % (20-40); Mean Corpuscular Hemoglobin 30.4 pg (27.0-33.0); Monocytes Absolute Auto 0.5 X10*3/uL (0.1-1.2); Monocytes Percent Auto 6.4 % (2-11); Neutrophils Percent Auto 36.8 % (45-73); Platelet Count 226 X10*3/uL (160-400); Red Blood Count 4.61 X10*6/uL (4.20-5.50); Red Cell Distribution Width 13.5 % (11.0-16.0); White Blood Count 8.1 X10*3/uL (4.8-10.8)
[2024-12-24 17:38] LABS: Alanine Aminotransferase 25 U/L (0-31); Albumin Level 4.4 g/dL (3.5-5.0); Alkaline Phosphatase 80 U/L (39-117); Anion Gap 8 (12-20); Aspartate Amino Transferase 34 U/L (5-31); Bilirubin Total 0.2 mg/dL (0.0-1.0); Blood Urea Nitrogen 10 mg/dL (9-16); Calcium 9.2 mg/dL (8.4-10.2); Carbon Dioxide 30 mmol/L (22-29); Chloride 108 mmol/L (96-108); Estimated Glomerular Filt Rate 53; Glucose Random 92 mg/dL (60-115); Potassium 3.8 mmol/L (3.3-5.1); Sodium 142 mmol/L (135-145); Total Protein 7.9 g/dL (6.5-8.0)
[2024-12-24 17:53] LABS: Creatinine Urine 146.06 mg/dL; Microalbumin Urine < 5.0 mg/L
[2024-12-25 15:09] LABS: HIV RNA PCR Qn Copies 32 copies/mL (NOT DETECTED); HIV RNA PCR Qn Log Copies 1.51 (NOT DETECTED)
[2024-12-28 16:30] LABS: Absolute CD3 Count 2435 cells/uL (840-3060); Absolute CD4 Count 1058 cells/uL (490-1740); Absolute CD8 Count 1457 cells/uL (180-1170); Absolute Lymphocytes 4380 cells/uL (850-3900); CD4 CD8 Ratio 0.73 (0.86-5.00); Percent CD3 Cells 56 % (57-85); Percent CD4 Cells 24 % (30-61); Percent CD8 Cells 33 % (12-42)
== END 2024-12-24 14:39 | disposition home or self-care (01) ==
LOC: HO.HHCL 14:38
PROVIDERS: Internal Medicine; PCP Internal Medicine; Visit Provider Internal Medicine
DX: Z21 Asymptomatic human immunodeficiency virus [HIV] infection status (principal); E11.9 Type 2 diabetes mellitus without complications
CPT/HCPCS: 36415; 80053; 82043; 82570; 85025; 86359; 86360; 87536

== ENCOUNTER 2025-06-23 08:16 | Outpatient (REF) | payer OTHER, SELFPAY ==
[2025-06-23 11:21] LABS: Hematocrit 41.1 % (37.0-47.0); Hemoglobin 13.5 g/dl (12.0-16.0); Imm Gran Abs Auto 0.02 X10*3/uL (0.00-0.03); Imm Gran Pct Auto 0.2 % (0.0-0.4); Lymphocytes Absolute Auto 4.9 X10*3/uL (1.2-4.9); MANUAL DIFF FLAG SCAN; Mean Corpuscular HGB Conc 32.8 g/dl (31.0-35.0); Mean Corpuscular Hemoglobin 31.0 pg (27.0-33.0); Mean Corpuscular Volume 94.5 fL (80.0-98.0); NRBC Abs Auto 0.000 X10*3/uL (0.0-0.012); NRBC Pct Auto 0.0 /100WBC (0.0-0.2); Platelet Count 236 X10*3/uL (160-400); Red Blood Count 4.35 X10*6/uL (4.20-5.50); SCAN SMEAR FLAG 1; White Blood Count 8.1 X10*3/uL (4.8-10.8)
[2025-06-23 11:39] LABS: Alanine Aminotransferase 24 U/L (0-31); Albumin Level 4.3 g/dL (3.5-5.0); Alkaline Phosphatase 72 U/L (39-117); Anion Gap 8 (12-20); Aspartate Amino Transferase 31 U/L (5-31); Blood Urea Nitrogen 17 mg/dL (9-16); Calcium 8.8 mg/dL (8.4-10.2); Carbon Dioxide 29 mmol/L (22-29); Chloride 109 mmol/L (96-108); Estimated Glomerular Filt Rate 59; Potassium 4.6 mmol/L (3.3-5.1); Sodium 141 mmol/L (135-145); Total Protein 7.4 g/dL (6.5-8.0)
[2025-06-23 12:45] LABS: Syphilis Screen Nonreactive (Nonreactive)
[2025-06-25 08:49] LABS: HCV Log PCR <1.18 NOT DETECTED Log IU/mL (NOT DETECTED); HepC Viral Load <15 NOT DETECTED IU/mL (NOT DETECTED)
== END 2025-06-23 08:17 | disposition home or self-care (01) ==
LOC: HO.HHCL 08:16
PROVIDERS: PCP Internal Medicine; Visit Provider Internal Medicine
DX: B20 Human immunodeficiency virus [HIV] disease (principal); Z11.59 Encounter for screening for other viral diseases
CPT/HCPCS: 36415; 80053; 85025; 86359; 86360; 86780; 87522; 87536

== ENCOUNTER 2025-06-24 08:00 | Outpatient (REF) | payer OTHER, SELFPAY | END 2025-06-24 08:01 | disposition home or self-care (01) | LOC: HO.LNP 08:00 | PROVIDERS: Visit Provider Internal Medicine | DX: R12 Heartburn (principal) | CPT/HCPCS: 87338 ==